=== PATIENT | female | born 2000 ===

== ENCOUNTER → 2018-03-22 | Outpatient (REF) | payer BC ==
[2018-03-22 14:29] LABS: PLATELET COUNT, AUTOMATED 281 K/uL (150-450)
== END ==
PROVIDERS: ATTEND Nurse Practitioner Family
DX: R10.9 Unspecified abdominal pain (principal)
CPT/HCPCS: 82040; 82247; 82310; 82374; 82435; 82565; 82947; 84075; 84132; 84155; 84295; 84450; 84460; 84520; 85025

== ENCOUNTER → 2018-03-22 | Outpatient (CLI) | payer BC ==
--- NOTE | 2018-03-22 16:48 | RADIOLOGY IMAGING REPORT ---
FACILITY: [facility] PATIENT NAME: Codi Baez : 2000 MR: [id number] V: [id number] EXAM DATE: ORDERING PHYSICIAN: ZAYRA SCHMIDT TECHNOLOGIST: Location: [facility] [place] Patient: Codi Baez : 2000 Visit/Account:[id number] Date of Sevice: 03/22/2018 Examination: Focused abdominal ultrasound. Comparison: None. History: Left-sided abdominal pain. Recent diagnosis of mononucleosis. Findings: Focused sonographic evaluation of the left abdomen is performed. Visualized aorta and IVC are unremarkable. 11.7 cm homogeneous spleen. No perisplenic fluid. 10.6 x 5.5 x 4.4 cm left kidney. No mass or hydronephrosis. IMPRESSION: Negative ultrasound of the spleen and left kidney. Report Dictated By: Javad Murillo MD at 03/22/2018 4:41 PM Report E-Signed By: Javad Murillo MD at 03/22/2018 4:43 PM WSN:[id number]
== END ==
LOC: US 15:44
PROVIDERS: ATTEND Nurse Practitioner Family
DX: R10.32 Left lower quadrant pain (principal)
CPT/HCPCS: 76705